=== PATIENT | male | born 1975 | race Caucasian/White ===

== ENCOUNTER 2024-12-01 06:14 | Day surgery (SDC) | payer SELFPAY ==
[2024-12-01] VITALS (8 sets, daily range): BP systolic 94–122; BP diastolic 61–90; PULSE 63–80; RESP 16; TEMP 36.1–36.4; O2SAT 92–99; BMI 33.3
--- OUTSIDE RECORDS SUMMARY | 2024-12-01 06:19 | XMS RPT_ITS | CCD ---
Author Organization [facility] Care Team Providers Care Supervisor [employer] Name Role Phone Rogelio Chin PA-C Primary Care Provider [phone] Rogelio Chin PA-C Referring Provider Britton NELSON, Dr. Contreras Attending Provider Rogelio Chin Referring Unavailable Rogelio Chin Primary Care Unavailable Ben Jarquin Attending Unavailable Rogelio Chin Primary Care Unavailable Ben Jarquin Attending Unavailable Problems Problem Classification Problem Date Documented Da te Episodic/Chronic Abdominal pain (3 sources) Left upper quadrant pain; Translations: [Left upper quadrant pain] Onset: 11-03-2024 11-03-2024 Episodic Results Test Name Value Interpretation Reference Range Facil it Surgery Visit Reporton 11-03 Surgery Visit Report [facility] [address] [place] [address] [address] [place] [address] OFFICE VISIT Date of Service: 11/03/24 MR#: [id number] Acct: [id number] Name: MARJAN ROBINS Rep #: [id number] : 1975 Provider: Dr. Ben gómez MD Age/Sex: 49/M Location: [facility] Status: Signed Intake Vital Signs 11/03/24 13:54 Height 5 ft 4 in Weight: 198 lb BMI 34.0 BP 116/78 Blood Pressure Location Rt brachial Position Sitting Respiration 16 Intake Visit Reasons: HIATAL HERNIA Chief Complaint: luq abd pain Aquatic Performer Required: No Is patient in pain?: No Allergies No Known Allergies Allergy (Unverified 11/03/24 13:54) Medications ???Medication ???Instructions ???Recorded ???Confirmed ???Type NK 11/03/24 11/03/24 History Have you fallen in the past year?: No PFSH Medical History (Updated 11/03/24 @ 14:[address] Ben Jarquin MD) LUQ abdominal pain Family History (Updated 11/03/24 @ 13:54 by Julissa Sierra) Mother Hypertension Social History (Updated 11/03/24 @ 13:54 by Julissa Sierra) Smoking Status: Former smoker alcohol intake: never HPI HPI HPI: Patient is a 49-year-old male here with left upper quadrant pain. He was sent here for evaluation for hiatal hernia. He reports that it hurts whenever he eats. He has tried a PPI and Carafate to no avail after a few weeks of treatment. The pain does not radiate. He says it hurts whenever he eats anything. He said even drinking water can make it hurt ROS General General: No weight change, appetite, fatigue, colon cancer, breast cancer or weakness HEENT HEENT: No difficulty swallowing, eye injury, eye surgery, swollen glands or hoarseness Endo Endocrine: No thyroid disease, diabetes mellitus, thyroid cancer, Hair loss, heat intolerance or cold intolerance Skin Skin: No rash or changing moles Breast Breast: No left breast lump, right breast lump, nipple discharge, breast pain, abnormal mammogram, abnormal US or breast enlargement Musc Musculoskeletal: No back problems, arthritis, rheumatoid arthritis, gout or joint pain Cardio Cardiovascular: No murmur, pacemaker, heart disease, atrial fibrillation, high blood pressure, heart attack, heart stent, palpitations, shortness of breath with exertion or chest pain Psych Psychiatric: No depression, anxiety or hearing voices Resp Respiratory: No shortness of breath, No sleep apnea, No cough, No COPD, No asthma, No emphysema and No wheezing Gastro Gastrointestinal: No abdominal pain, No nausea or vomiting, No diarrhea, No constipation, No blood in stool, No acid reflux, No hemorrhoids, No ulcers, No gallbladder problem and No black,tarry stools Toi Hematologic: No blood thinners, No blood disorders, No bleeding, No anemia and No blood clots Neuro Neurologic: No system reviewed and no additional complaints, except as documented, No as per HPI, No abnormal gait, No abnormal hearing, No abnormal movements, No abnormal speech, No behavioral changes, No burning sensations, No confusion, No convulsions, No disequilibrium, No dizziness, No localized weakness, No frequent falls, No headache(s), No lack of coordination, No loss of vision, No memory loss, No numbness, No other visual disturbances, No radicular pain, No restless legs, No sensory deficit, No syncope, No tingling, No tremor(s), No weakness and No other Exam Const General: cooperative Orientation: alert and oriented x3 HENMT Head: normal to inspection Neck Neck: normal visual inspection and full ROM Chest Chest palpation inspection: normal inspection of the chest Resp Effort Inspection: normal respiratory effort Auscultation: clear to auscultation bilaterally Cardio Rate: regular rate Rhythm: regular rhythm GI Inspection: non-distended Palpation: soft and nontender Skin General: no rashes or lesions noted Neuro General: patient alert and patient oriented x3 Extrem General: full ROM Psych Appearance: grossly normal Mental Status: mental status grossly normal Assessment and Plan Assessment and Plan (1) LUQ abdominal pain: Status: Acute Plan: The patient is having left upper quadrant pain he reports that eating any type of food or drink makes it hurt worse. He says this has been going on for several years. He denies blood in the stool. He has tried a PPI and Carafate which did not help. I discussed performing EGD to evaluate the stomach and esophagus and if there is nothing on EGD to indicate hiatal hernia or ulceration then I will order a CT scan to evaluate. I explained endoscopy in detail to the patient. I explained the risks including but not limited to stroke or heart attack with anesthesia, perforation of the GI tract, bleeding, infection. I explained that any of these could necessitate furt (more content not included)... Normal [facility] AMYLASEon 04-10-2023 Amylase [Catalytic activity/Vol] 47 U/L Normal 21-101 [facility] Comment on above: Performed By: #### 6 613, 606 #### [facility] [address], [address] [place] [id number] Brush Hand: Mundo Wang MD CBC (INCLUDES DIFF/PLT)on Basophils (Bld) [#/Vol] 0.028 10*3/uL Normal 0-200 [facility] Comment on above: Performed By: #### 6 399, 606 #### [facility] [address], [address] [place] [address] Brush Hand: Mundo Wang MD Basophils/100 WBC (Bld) 0.5 % Normal [facility] Comment on above: Performed By: #### 6 399, 606 #### [facility] of [address], [address] [place] [address] Brush Hand: Mundo Wang MD Eosinophils (Bld) [#/Vol] 0.062 10*3/uL Normal 15-500 [facility] Comment on above: Performed By: #### 6 399, 606 #### [facility] of [place] [address] Brush Hand: Mundo Wang MD Eosinophils/100 WBC (Bld) 1.1 % Normal [facility] Comment on above: Performed By: #### 6 399, 606 #### [facility] of [place] [address] Brush Hand: Mundo Wang MD Erythrocyte distribution width (RBC) [Ratio] 13.1 % Normal 11.0-15.0 [facility] Comment on above: Performed By: #### 6 399, 606 #### [facility] of [place] [address] Brush Hand: Mundo Wang MD Hematocrit (Bld) [Volume fraction] 48.6 % Normal 38.5-50.0 [facility] Comment on above: Performed By: #### 6 399, 606 #### [facility] of [place] [address] Brush Hand: Mundo Wang MD Hemoglobin (Bld) [Mass/Vol] 16.6 g/dL Normal 13.2-17.1 [facility] Comment on above: Performed By: #### 6 399, 606 #### [facility] of [place] [address] Brush Hand: Mundo Wang MD Lymphocytes (Bld) [#/Vol] 1.501 10*3/uL Normal 850-3900 [facility] Comment on above: Performed By: #### 6 399, 606 #### [facility] [place] [address] Brush Hand: Mundo Wang MD Lymphocytes/100 WBC (Bld) 26.8 % Normal [facility] Comment on above: Performed By: #### 6 399, 606 #### [facility] [place] [address] Brush Hand: Mundo Wang MD MCH (RBC) [Entitic mass] 29.8 pg Normal 27.0-33.0 [facility] Comment on above: Performed By: #### 6 399, 606 #### [facility] [place] [address] Brush Hand: Mundo Wang MD MCHC (RBC) [Mass/Vol] 34.2 g/dL Normal 32.0-36.0 [facility] Comment on above: Performed By: #### 6 399, 606 #### [facility] [place] [address] Brush Hand: Mundo Wang MD MCV (RBC) [Entitic vol] 87.3 fL Normal 80.0-100.0 [facility] Comment on above: Performed By: #### 6 399, 606 #### [facility] [place] [address] Brush Hand: Mundo Wang MD Monocytes (Bld) [#/Vol] 0.566 10*3/uL Normal 200-950 [facility] Comment on above: Performed By: #### 6 399, 606 #### [facility] [place] [address] Brush Hand: Mundo Wang MD Monocytes/100 WBC (Bld) 10.1 % Normal [facility] Comment on above: Performed By: #### 6 399, 606 #### [facility] of [address], [address] [place] [address] Brush Hand: Mundo Wang MD Neutrophils (Bld) [#/Vol] 3.444 10*3/uL Normal 3548-2404 [facility] Comment on above: Performed By: #### 6 399, 606 #### [facility] of [address], [address] [place] [address] Brush Hand: Mundo Wang MD Neutrophils/100 WBC (Bld) 61.5 % Normal [facility] Comment on above: Performed By: #### 6 399, 606 #### [facility] of [address], [address] [place] [address] Brush Hand: Mundo Wang MD Platelet mean volume (Bld) [Entitic vol] 10.9 fL Normal 7.5-12.5 [facility] Comment on above: Performed By: #### 6 399, 606 #### [facility] of [address], [address] [place] [address] Brush Hand: Mundo Wang MD Platelets (Bld) [#/Vol] 264 10*3/uL Normal 140-400 [facility] Comment on above: Performed By: #### 6 399, 606 #### [facility] of [address], [address] [place] [address] Brush Hand: Mundo Wang MD RBC (Bld) [#/Vol] 5.57 10*6/uL Normal 4.20-5.80 [facility] Comment on above: Performed By: #### 6 399, 606 #### [facility] of [address], [address] [place] [address] Brush Hand: Mundo Wang MD WBC (Bld) [#/Vol] 5.6 10*3/uL Normal 3.8-10.8 [facility] Comment on above: Performed By: #### 6 399, 606 #### [facility] of [address], [address] [place] [address] Brush Hand: Mundo Wang MD LIPASEon 04-10-2023 Lipase [Catalytic activity/Vol] 32 U/L Normal 7-60 [facility] Comment on above: Performed By: #### 6 451, 943 #### [facility] [address] [place] [address], [address] [place] [address] Brush Hand: Mundo Wang MD Vital Signs Date Time Vital Sign Value Performing Clinician Lucero castro 11-03-2024 13:54-0400 Body height 162.56 cm Rogelio Chin PA-C Work Phone: [facility] 11-03-2024 13:54-0400 Body mass index (BMI) [Ratio] 34 kg/m2 Rogelio Chin PA-C Work Phone: [facility] 11-03-2024 13:54-0400 Body weight 89.81 kg Rogelio Chin PA-C Work Phone: [facility] 11-03-2024 13:54-0400 Diastolic blood pressure 78 mm[Hg] Rogelio Chin PA-C Work Phone: [facility] 11-03-2024 13:54-0400 Respiratory rate 16 /min Rogelio Chin PA-C Work Phone: [facility] 11-03-2024 13:54-0400 Systolic blood pressure 116 mm[Hg] Rogelio Chin PA-C Work Phone: [facility] Encounters Encounter Date Encounter Type Care Provider Facility Start: 12-01-2024 ambulatory Rogelio D Chin Facilit y:[facility] Start: 11-03-2024 End: 11-03-[address] Ben Jarquin MD -[facility] Work Phone: Start: 11-03-2024 End: 11-03-2024 ambulatory Rogelio D Chin PA-C Work Phone: [facility] Work Phone: Plan of Treatment Date Care Activity Detail Author [facility] Payers Date Payer Category Payer Self-pay 2024 Unknown 0 Unknown [id number] Unknown [id number] Social History Date Type Detail Facility [facility]: [facility]03[facility] Start: 1975 Sex Assigned At Male [facility] Progress note 11-03-2024 Note Date & Type Note Facility 11-03-2024 Progress note [facility] Progress note 11-03-2024 Note Date & Type Note Facility 11-03-2024 Progress note Note Date/Time November 03, 2024 2:02pm [facility] [address] [place] [address] OFFICE VISIT Date of Service: 11/03/24 MR#: [id number] Acct: [id number] Name: MARJAN ROBINS Rep #: [id number] : 1975 Provider: Dr. Adarsh Jarquin MD Age/Sex: 49/M Location: [facility] Status: Signed Intake Vital Signs 11/03/24 13:54 Height 5 ft 4 in Weight: 198 lb BMI 34.0 BP 116/78 Blood Pressure Location Rt brachial Position Sitting Respiration 16 Intake Visit Reasons: HIATAL HERNIA Chief Complaint: luq abd pain Aquatic Performer Required: No Is patient in pain?: No Allergies No Known Allergies Allergy (Unverified 11/03/24 13:54) Medications ?Medication ?Instructions ?Recorded ?Confirmed ?Type NK 11/03/24 11/03/24 History Have you fallen in the past year?: No PFSH Medical History (Updated 11/03/24 @ 14:[address] Ben Jarquin MD) LUQ abdominal pain Family History (Updated 11/03/24 @ 13:54 by Julissa Sierra) Mother Hypertension Social History (Updated 11/03/24 @ 13:54 by Julissa Sierra) Smoking Status: Former smoker alcohol intake: never HPI HPI HPI: Patient is a 49-year-old male here with left upper quadrant pain. He was sent here for evaluation for hiatal hernia. He reports that it hurts whenever he eats. He has tried a PPI and Carafate to no avail after a few weeks of treatment. The pain does not radiate. He says it hurts whenever he eats anything. He said even drinking water can make it hurt ROS General General: No weight change, appetite, fatigue, colon cancer, breast cancer or weakness HEENT HEENT: No difficulty swallowing, eye injury, eye surgery, swollen glands or hoarseness Endo Endocrine: No thyroid disease, diabetes mellitus, thyroid cancer, Hair loss, heat intolerance or cold intolerance Skin Skin: No rash or changing moles Breast Breast: No left breast lump, right breast lump, nipple discharge, breast pain, abnormal mammogram, abnormal US or breast enlargement Musc Musculoskeletal: No back problems, arthritis, rheumatoid arthritis, gout or joint pain Cardio Cardiovascular: No murmur, pacemaker, heart disease, atrial fibrillation, high blood pressure, heart attack, heart stent, palpitations, shortness of breath with exertion or chest pain Psych Psychiatric: No depression, anxiety or hearing voices Resp Respiratory: No shortness of breath, No sleep apnea, No cough, No COPD, No asthma, No emphysema and No wheezing Gastro Gastrointestinal: No abdominal pain, No nausea or vomiting, No diarrhea, No constipation, No blood in stool, No acid reflux, No hemorrhoids, No ulcers, No gallbladder problem and No black,tarry stools Toi Hematologic: No blood thinners, No blood disorders, No bleeding, No anemia and No blood clots Neuro Neurologic: No system reviewed and no additional complaints, except as documented, No as per HPI, No abnormal gait, No abnormal hearing, No abnormal movements, No abnormal speech, No behavioral changes, No burning sensations, No confusion, No convulsions, No disequilibrium, No dizziness, No localized weakness, No frequent falls, No headache(s), No lack of coordination, No loss ofvision, No memory loss, No numbness, No other visual disturbances, No radicular pain, No restless legs, No sensory deficit, No syncope, No tingling, No tremor(s), No weakness and No other Exam Const General: cooperative Orientation: alert and oriented x3 HENMT Head: normal to inspection Neck Neck: normal visual inspection and full ROM Chest Chest palpation & inspection: normal inspection of the chest Resp Effort & Inspection: normal respiratory effort Auscultation: clear to auscultation bilaterally Cardio Rate: regular rate Rhythm: regular rhythm GI Inspection: non-distended Palpation: soft and nontender Skin General: no rashes or lesions noted Neuro General: patient alert and patient oriented x3 Extrem General: full ROM Psych Appearance: grossly normal Mental Status: mental status grossly normal Assessment and Plan Assessment and Plan (1) LUQ abdominal pain: Status: Acute Plan: The patient is having left upper quadrant pain he reports that eating any type of food or drink makes it hurt worse. He says this has been going on for several years. He denies blood in the stool. He has tried a PPI and Carafate which did not help. I discussed performing EGD to evaluate the stomach and esophagus and if there is nothing on EGD to indicate hiatal hernia or ulcerationthen I will order a CT scan to evaluate. I explained endoscopy in detail to the patient. I explained the risks includingbut not limited to stroke or heart attack with anesthesia, perforation of the GItract, bleeding, infection. I explained that any of these could necessitate further emergency surgery. The patient understands and all questions were answered sufficiently. The patient wishes to proceed with procedure. Ben Jarquin MD Pager: [facility] [address] [place] [address], [address] [place] [address] Office: Orders: Orders EGD Today Coding Level of Care Code Off vis,new,level 3 Diagnoses LUQ abdominal pain R10.12 Clinical Quality Measures Falls Risk Screening/Assistive Devices Have you fallen in the past year?: No 11/03/24 1402 <Electronically signed by Ben montano MD> Date _ Ben Jarquin MD Cosigner Signature: Date (if applicable) CC: ~ [facility] Work Phone: Evaluation note Note Date & Type Note Facility Evaluation note Diagnosis Onset Date Resolution LUQ abdominal pain acute October 182024 1:35pm [facility] Work Phone: Reason for referral (narrative) Note Date & Type Note Facility Reason for referral (narrative) No reason for referral information available [facility] Work Phone: Summary Purpose Family History No Family History Records Found Relationship Condition Age at Onset Recorded Date/T leslee mother Hypertension Unknown Advance Directives No Advanced Directives Records FoundNo Advanced Directives Records Found Chief Complaint and Reason for Visit Chief Complaint Admit Date HIATAL HERNIA November 03, 2024 1:35 pm Reason for Visit Admit Date LUQ abdominal pain November 03, 2024 1:35 pm Additional Source Comments (unrecognized sect ion and content) No Status Records FoundNo Status Records Found INFORMATION SOURCE (unrecogn ized section and content) DATE CREATED AUTHOR 04/12/2023 [facility] DATE CREATED AUTHOR AUTHOR'S ORGANIZ ATION 11/29/2024 [facility] Care Teams (unrecognized sec tion and content) Team Status: Active Member Role Status Dates Rogelio Chin PA-C Primary Care Provider Active Team Status: Inactive Member Role Status Dates Rogelio Chin PA-C Primary Care Provider Active Start: November 03, 2024 End: November 03, 2024 Rogelio Chin PA-C Referring Provider Active Start: November 03, 2024 End: November 03, 2024 Dr. Ben Jarquin MD Attending Provider Active Start: November 03, 2024 End: November 03, 2024 Goals (unrecognized section and content) Goals may be documented in a n alternate section FOR RECORDS PERTAINING TO PATIENTS WHO ARE OR HAVE BEEN ENROLLED IN A CHEMICAL DEPENDENCY/SUBSTANCEABUSE PROGRAM, SOME INFORMATION MAY BE OMITTED. This clinical summary was aggregated from multiple sources. Caution should be exercised in using it in the provision of clinical care. This summary normalizes information from multiple sources, and as a consequence, information in this document may materially change the coding, format and clinical context of patient data. In addition, data may be omitted in some cases. CLINICAL DECISIONS SHOULD BE BASED ON THE PRIMARY CLINICAL RECORDS. [facility] provides no warranty or guarantee of the accuracy or completeness of information in this document.
--- OUTSIDE RECORDS SUMMARY | 2024-12-01 06:19 | XMS RPT_ITS | CCD ---
Author Organization [facility] Care Team Providers Care Museum Service Scheduler Name Role Phone Rogelio Chin PA-C Primary Care Provider [phone] Rogelio Chin PA-C Referring Provider [phone] Britton NELSON, Dr. Contreras Attending Provider Rogelio [...] Surgery Visit Reporton 11-[address] [facility] [address] [place] [address] [address] [place] [address] OFFICE VISIT Date of Service: 11/03/24 MR#: [id number] Acct: [id number] Name: MARJAN ROBINS Rep #: [id number] : 1975 Provider: Dr. Ben gómez MD Age/Sex: 49/M Location: [facility] Status: Signed Intake Vital Signs 11/03/24 13:54 Height 5 ft 4 in Weight: 198 lb BMI 34.0 BP 116/78 Blood Pressure Location Rt brachial Position Sitting Respiration 16 Intake Visit Reasons: HIATAL HERNIA Chief Complaint: luq abd pain Non Licensed Nuclear Equipment Operator Required: No Is patient in pain?: No [...] necessitate furt (more content not included)... Normal [facility] AMYLASEon 04-10-2023 Amylase [Catalytic activity/Vol] 47 U/L Normal 21-101 [facility] Comment on above: Performed By: #### 6 579, 606 #### [facility] [address], [address] [place] [phone] Chiropractic Physician: Mundo Wang MD CBC (INCLUDES DIFF/PLT)on Basophils (Bld) [#/Vol] 0.028 10*3/uL Normal 0-200 [facility] Comment on above: Performed By: #### 6 399, 606 #### [facility] [address], [address] [place] [address] Chiropractic Physician: Mundo Wang MD Basophils/100 WBC (Bld) 0.5 % Normal [facility] Comment on above: Performed By: #### 6 399, 606 #### [facility] of [address], [address] [place] [address] Chiropractic Physician: Mundo Wang MD Eosinophils (Bld) [#/Vol] 0.062 10*3/uL Normal 15-500 [facility] Comment on above: Performed By: #### 6 399, 606 #### [facility] of [place] [address] Chiropractic Physician: Mundo Wang MD Eosinophils/100 WBC (Bld) 1.1 % Normal [facility] Comment on above: Performed By: #### 6 399, 606 #### [facility] of [place] [address] Chiropractic Physician: Mundo Wang MD Erythrocyte distribution width (RBC) [Ratio] 13.1 % Normal 11.0-15.0 [facility] Comment on above: Performed By: #### 6 399, 606 #### [facility] of [place] [address] Chiropractic Physician: Mundo Wang MD Hematocrit (Bld) [Volume fraction] 48.6 % Normal 38.5-50.0 [facility] Comment on above: Performed By: #### 6 399, 606 #### [facility] of [place] [address] Chiropractic Physician: Mundo Wang MD Hemoglobin (Bld) [Mass/Vol] 16.6 g/dL Normal 13.2-17.1 [facility] Comment on above: Performed By: #### 6 399, 606 #### [facility] of [place] [address] Chiropractic Physician: Mundo Wang MD Lymphocytes (Bld) [#/Vol] 1.501 10*3/uL Normal 850-3900 [facility] Comment on above: Performed By: #### 6 399, 606 #### [facility] [place] [address] Chiropractic Physician: Mundo Wang MD Lymphocytes/100 WBC (Bld) 26.8 % Normal [facility] Comment on above: Performed By: #### 6 399, 606 #### [facility] [place] [address] Chiropractic Physician: Mundo Wang MD MCH (RBC) [Entitic mass] 29.8 pg Normal 27.0-33.0 [facility] Comment on above: Performed By: #### 6 399, 606 #### [facility] [place] [address] Chiropractic Physician: Mundo Wang MD MCHC (RBC) [Mass/Vol] 34.2 g/dL Normal 32.0-36.0 [facility] Comment on above: Performed By: #### 6 399, 606 #### [facility] [place] [address] Chiropractic Physician: Mundo Wang MD MCV (RBC) [Entitic vol] 87.3 fL Normal 80.0-100.0 [facility] Comment on above: Performed By: #### 6 399, 606 #### [facility] [place] [address] Chiropractic Physician: Mundo Wang MD Monocytes (Bld) [#/Vol] 0.566 10*3/uL Normal 200-950 [facility] Comment on above: Performed By: #### 6 399, 606 #### [facility] [place] [address] Chiropractic Physician: Mundo Wang MD Monocytes/100 WBC (Bld) 10.1 % Normal [facility] Comment on above: Performed By: #### 6 399, 606 #### [facility] of [address], [address] [place] [address] Chiropractic Physician: Mundo Wang MD Neutrophils (Bld) [#/Vol] 3.444 10*3/uL Normal 6682-9355 [facility] Comment on above: Performed By: #### 6 399, 606 #### [facility] of [address], [address] [place] [address] Chiropractic Physician: Mundo Wang MD Neutrophils/100 WBC (Bld) 61.5 % Normal [facility] Comment on above: Performed By: #### 6 399, 606 #### [facility] [address], [address] [place] [address] Chiropractic Physician: Mundo Wang MD Platelet mean volume (Bld) [Entitic vol] 10.9 fL Normal 7.5-12.5 [facility] Comment on above: Performed By: #### 6 399, 606 #### [facility] [address], [address] [place] [address] Chiropractic Physician: Mundo Wang MD Platelets (Bld) [#/Vol] 264 10*3/uL Normal 140-400 [facility] Comment on above: Performed By: #### 6 399, 606 #### [facility] [address], [address] [place] [address] Chiropractic Physician: Mundo Wang MD RBC (Bld) [#/Vol] 5.57 10*6/uL Normal 4.20-5.80 [facility] Comment on above: Performed By: #### 6 399, 606 #### [facility] [address], [address] [place] [address] Chiropractic Physician: Mundo Wang MD WBC (Bld) [#/Vol] 5.6 10*3/uL Normal 3.8-10.8 [facility] Comment on above: Performed By: #### 6 399, 606 #### [facility] of [address], [address] [place] [address] Chiropractic Physician: Mundo Wang MD LIPASEon 04-10-2023 Lipase [Catalytic activity/Vol] 32 U/L Normal 7-60 [facility] Comment on above: Performed By: #### 6 399, 393 #### [facility] [address] [place] [address], [address] [place] [address] Chiropractic Physician: Mundo Wang MD Vital Signs Date Time Vital Sign Value Performing Clinician Lucero castro 11-03-2024 13:54-0400 Body height 162.56 cm Rogelio Chin PA-C Work Phone: [facility] 11-03-2024 13:54-0400 Body mass index (BMI) [Ratio] 34 kg/m2 Rogelio Chin PA-C Work Phone: [facility] 11-03-2024 13:54-0400 Body weight 89.81 kg Rogelio Chin PA-C Work Phone: [facility] 11-03-2024 13:54-0400 Diastolic blood pressure 78 mm[Hg] Rogelio Chin PA-C Work Phone: [facility] 11-03-2024 13:54-0400 Respiratory rate 16 /min Rogelio Chin PA-C Work Phone: [facility] 11-03-2024 13:54-0400 Systolic blood pressure 116 mm[Hg] Rogelio Chin PA-C Work Phone: [facility] Encounters Encounter Date Encounter Type Care Provider Facility Start: 12-01-2024 ambulatory Rogelio D Chin Facilit y:[facility] Start: 11-03-2024 End: 11-03-[address] Ben Jarquin MD -[facility] Work Phone: Start: 11-03-2024 End: 11-03-2024 ambulatory Rogelio D Chin PA-C Work Phone: [facility] Work Phone: Plan of Treatment Date Care Activity Detail Author [facility] Payers Date Payer Category Payer Self-pay 2024 Unknown 0 Unknown [id number] Unknown [id number] Social History Date Type Detail Facility Start: 11-03-[address] [facility] Start: 1975 Sex Assigned At Male [facility] Progress note 11-03-2024 Note Date & Type Note Facility 11-03-2024 Progress note [facility] Progress note 11-03-2024 Note Date & Type Note Facility 11-03-2024 Progress note Note Date/Time November 03, 2024 2:02pm [facility] [address] [place] [address] OFFICE VISIT Date of Service: 11/03/24 MR#: [id number] Acct: [id number] Name: MARJAN ROBINS Rep #: [id number] : 1975 Provider: Dr. Adarsh Jarquin MD Age/Sex: 49/M Location: [facility] Status: Signed Intake Vital Signs 11/03/24 13:54 Height 5 ft 4 in Weight: 198 lb BMI 34.0 BP 116/78 Blood Pressure Location Rt brachial Position Sitting Respiration 16 Intake Visit Reasons: HIATAL HERNIA Chief Complaint: luq abd pain Non Licensed Nuclear Equipment Operator Required: No Is patient in pain?: No [...] proceed with procedure. Ben Jarquin MD Pager: [facility] [address] [place] [address], [address] [place] [address] Office: Orders: Orders EGD Today Coding Level of Care Code Off vis,new,level 3 Diagnoses LUQ abdominal pain R10.12 Clinical Quality Measures Falls Risk Screening/Assistive Devices Have you fallen in the past year?: No 11/03/24 1402 <Electronically signed by Ben montano MD> Date _ Ben Jarquin MD Cosigner Signature: Date (if applicable) CC: ~ [facility] Work Phone: Evaluation note Note Date & Type Note Facility Evaluation note Diagnosis Onset Date Resolution LUQ abdominal pain acute October 182024 1:35pm [facility] Work Phone: Reason for referral (narrative) Note Date & Type Note Facility Reason for referral (narrative) No reason for referral information available [facility] Work Phone: Summary Purpose Family History [...] DATE CREATED AUTHOR AUTHOR'S ORGANIZ ATION 11/29/2024 [facility] Care Teams (unrecognized sec tion and content) [...] BE BASED ON THE PRIMARY CLINICAL RECORDS. [facility] [employer] [facility]. provides no warranty or guarantee of the accuracy or completeness of information in this document.
--- NOTE | 2024-12-01 06:47 | PCM.HP.BLA ---
History and Physical Date of Admission: 12/01/24 Intake Vital Signs 11/03/2512:54 Height 5 ft 4 in Weight: 198 lb BMI 34.0 BP 116/78 Blood Pressure Location Rt brachial Position Sitting Respiration 16 Intake Visit Reasons: HIATAL HERNIA Chief Complaint: luq abd pain Engineering Production Liaison Required: No Is patient in pain?: No Allergies No Known Allergies Allergy (Unverified 11/03/24 13:54) Medications ?Medication ?Instructions ?Recorded ?Confirmed ?Type NK 11/03/24 11/03/24 History Have you fallen in the past year?: No PFSH Medical History (Updated 11/03/24 @ 14:[address] Ben Jarquin MD) LUQ abdominal pain Family History (Updated 11/03/24 @ 13:54 by Julissa Sierra) Mother Hypertension Social History (Updated 11/03/24 @ 13:54 by Julissa Sierra) Smoking Status: Former smoker alcohol intake: never HPI HPI HPI: Patient is a 49-year-old male here with left upper quadrant pain. He was sent here for evaluation for hiatal hernia. He reports that it hurts whenever he eats. He has tried a PPI and Carafate to no avail after a few weeks of treatment. The pain does not radiate. He says it hurts whenever he eats anything. He said even drinking water can make it hurt ROS General General: No weight change, appetite, fatigue, colon cancer, breast cancer or weakness HEENT HEENT: No difficulty swallowing, eye injury, eye surgery, swollen glands or hoarseness Endo Endocrine: No thyroid disease, diabetes mellitus, thyroid cancer, Hair loss, heat intolerance or cold intolerance Skin Skin: No rash or changing moles Breast Breast: No left breast lump, right breast lump, nipple discharge, breast pain, abnormal mammogram, abnormal US or breast enlargement Musc Musculoskeletal: No back problems, arthritis, rheumatoid arthritis, gout or joint pain Cardio Cardiovascular: No murmur, pacemaker, heart disease, atrial fibrillation, high blood pressure, heart attack, heart stent, palpitations, shortness of breath with exertion or chest pain Psych Psychiatric: No depression, anxiety or hearing voices Resp Respiratory: No shortness of breath, No sleep apnea, No cough, No COPD, No asthma, No emphysema and No wheezing Gastro Gastrointestinal: No abdominal pain, No nausea or vomiting, No diarrhea, No constipation, No blood in stool, No acid reflux, No hemorrhoids, No ulcers, No gallbladder problem and No black,tarry stools Toi Hematologic: No blood thinners, No blood disorders, No bleeding, No anemia and No blood clots Neuro Neurologic: No system reviewed and no additional complaints, except as documented, No as per HPI, No abnormal gait, No abnormal hearing, No abnormal movements, No abnormal speech, No behavioral changes, No burning sensations, No confusion, No convulsions, No disequilibrium, No dizziness, No localized weakness, No frequent falls, No headache(s), No lack of coordination, No loss of vision, No memory loss, No numbness, No other visual disturbances, No radicular pain, No restless legs, No sensory deficit, No syncope, No tingling, No tremor(s), No weakness and No other Exam Const General: cooperative Orientation: alert and oriented x3 HENMT Head: normal to inspection Neck Neck: normal visual inspection and full ROM Chest Chest palpation & inspection: normal inspection of the chest Resp Effort & Inspection: normal respiratory effort Auscultation: clear to auscultation bilaterally Cardio Rate: regular rate Rhythm: regular rhythm GI Inspection: non-distended Palpation: soft and nontender Skin General: no rashes or lesions noted Neuro General: patient alert and patient oriented x3 Extrem General: full ROM Psych Appearance: grossly normal Mental Status: mental status grossly normal Assessment and Plan Assessment and Plan (1) LUQ abdominal pain: Status: Acute Plan: The patient is having left upper quadrant pain he reports that eating any type of food or drink makes it hurt worse. He says this has been going on for several years. He denies blood in the stool. He has tried a PPI and Carafate which did not help. I discussed performing EGD to evaluate the stomach and esophagus and if there is nothing on EGD to indicate hiatal hernia or ulceration then I will order a CT scan to evaluate. I explained endoscopy in detail to the patient. I explained the risks including but not limited to stroke or heart attack with anesthesia, perforation of the GI tract, bleeding, infection. I explained that any of these could necessitate further emergency surgery. The patient understands and all questions were answered sufficiently. The patient wishes to proceed with procedure. Ben Jarquin MD Pager: [facility] [address] [place] [address], [address] [place] [address] Office: I have examined the patient and the H&P has been reviewed. There are no clinical changes since date of exam.
[2024-12-01] MEDS: Lactated Ringers 1,000 ML 15 ML IV (06:51)
--- NOTE | 2024-12-01 07:30 | EGD_PTH ---
PATIENT: MARJAN ROBINS LOC: EN U#:[id number] AGE/SX: 49/M ROOM: RE12/01/[address]: Dr. Ben Jarquin MD : 1975 BED: DIS: 12/01/2024 SPEC #: [id number] RECD: 12/01/24 09:39 STATUS: NADIA MELVI #: [id number] MARTÍN: 12/01/24 07:[address]: Ben Jarquin DEPT: SURGICAL PATHOLOGY RECD BY: Samra Gunderson ENTERED: 12/01/24 10:50 SP TYPE: EGD BIOPSY OT DR: Rogelio Chin PA-C Tissues: Gastric mucous membrane Procedures: Immunohistochemical Stains Surgery Specimen Level IV HEADER OPERATION: EGD with biopsy PRE-OP DIAGNOSIS: Left upper quadrant abdominal pain TISSUE SUBMITTED: A- Antrum biopsy MICROSCOPIC DIAGNOSIS A. Stomach, antrum, biopsy: * Antral mucosa with mild chronic focal active inflammation with intestinal metaplasia and reactive changes * The immunostain for Helicobacter pylori organisms is negative MICROSCOPIC DESCRIPTION Slides are reviewed. All matched controls reacted appropriately. These tests were developed and their performance characteristics determined by [facility]. They may not have been cleared or approved by the U.S. Food and Drug Administration. The FDA has determined that such clearance or approval is not necessary. The above immunohistochemical/dualISH markers are viewed by the Pathologist. GROSS DESCRIPTION A. Received in fixative is one container labeled with the patient's name and designated Antrum biopsy. The specimen consists of one irregular fragment of light reyes soft tissue that measures 0.5 cm. The specimen is totally submitted in one cassette. NE 12/01/2024 CPT:32400,00971
--- NOTE | 2024-12-01 07:30 | EGD_PTH ---
PATIENT: MARJAN ROBINS LOC: EN U#:[id number] AGE/SX: 49/M ROOM: RE12/01/[address]: Dr. Ben Jarquin MD : 1975 BED: DIS: 12/01/2024 SPEC #: [id number] RECD: 12/01/24 09:39 STATUS: NADIA MELVI #: [id number] MARTÍN: 12/01/24 07:[address]: eBn Jarquin DEPT: SURGICAL PATHOLOGY RECD BY: Samra Gunderson ENTERED: 12/01/24 10:50 SP TYPE: EGD BIOPSY OT DR: Rogelio Chin PA-C Tissues: Gastric mucous membrane Procedures: Immunohistochemical Stains Surgery Specimen Level IV HEADER OPERATION: EGD with biopsy PRE-OP DIAGNOSIS: Left upper quadrant abdominal pain TISSUE SUBMITTED: A- Antrum biopsy MICROSCOPIC DIAGNOSIS A. Stomach, antrum, biopsy: * Antral mucosa with mild chronic focal active inflammation with intestinal metaplasia and reactive changes * The immunostain for Helicobacter pylori organisms is negative MICROSCOPIC DESCRIPTION Slides are reviewed. All matched controls reacted appropriately. These tests were developed and their performance characteristics determined by [facility]. They may not have been cleared or approved by the U.S. Food and Drug Administration. The FDA has determined that such clearance or approval is not necessary. The above immunohistochemical/dualISH markers are viewed by the Pathologist. GROSS DESCRIPTION A. Received in fixative is one container labeled with the patient's name and designated Antrum biopsy. The specimen consists of one irregular fragment of light reyes soft tissue that measures 0.5 cm. The specimen is totally submitted in one cassette. OR 12/01/2024 CPT:69139,97169
--- NOTE | 2024-12-01 07:33 | PCM.PRE.AN2 ---
ASA Classification* ASA Classification ASA Classification: 2 Assessment & Plan Anesthesia* Anesthesia Assessment Anesthesia Assessment: Discussed sedation and/or anesthesia options, risks, benefits, and alternatives with patient/parents/legal guardian/POA. Questions invited. The patient/parents/legal guardian/POA seems to understand and agrees to proceed with anesthesia plan. Reviewed the physical assessment, medical history, allergy history and patient home medications list prior to surgery/procedure/anesthetic and documented any changes. Performed airway and anesthesia risk assessments. Anesthesia Type Anesthesia Type: MAC History Source History Obtained from:: Patient and Chart Anesthesia Focused Assessment* Temperature: 97.4 F Pulse Rate: 80 Blood Pressure: 122/90 Respiratory Rate: 16 Pulse Ox: 98 Oxygen Delivery Method: Room Air Airway Assessment Mouth opens: >3 cm Mallampati Score: IV Teeth Condition: Full (Patient is full upper and lower dentures. 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 When Was Last Pacemaker Check QUESTION #4 FULL TEXT: You/Your Family Experience fever (hyperthermia) with Anesthesia Last Oral Intake Last Oral intake: Last Oral Intake NPO since 22:00 12/01/24 06:45 Meds taken in AM with sips of water? Meds patient instructed to take am of surgery PONV PONV - conservation science teacher: PONV - conservation science teacher Female No 11/27/24 10:52 HX of Motion Sickness No 11/27/24 10:52 HX of N/V After Surgery No 11/27/24 10:52 Non-Smoker Yes 11/27/24 10:52 Duration of Surgery greater No 11/27/24 10:52 than 60 minutes Number of Risk Factors 1 11/27/24 10:52 PONV Score Low Risk 11/27/24 10:52 Height & Weight Height & Weight: Anesthesia: Height & Weight Height 5 ft 4 in 12/01/24 06:45 Weight: 88 kg 12/01/24 06:45 Body Mass Index (BMI) 33.3 12/01/24 06:45 Respiratory Assessment Respiratory Assessment - conservation science teacher: Respiratory Tract Infection Hx - conservation science teacher Hx Respiratory Tract Infection No 11/27/24 10:52 STOP Sleep Apnea STOP Sleep Apnea - conservation science teacher: STOP Sleep Apnea - conservation science teacher Hx Hypertension No 11/27/24 10:52 Hx Sleep Apnea No 11/27/24 10:52 CPAP BIPAP Do you snore loudly (louder Yes 11/27/24 10:52 than talking or can be heard Do you often feel tired/ No 11/27/24 10:52 fatigued/ sleepy during daytime? Has anyone observed you stop No 11/27/24 10:52 breathing during sleep? STOP Results Negative 11/27/24 10:52 QUESTION #5 FULL TEXT : Do you snore loudly (louder than talking or can be heard through closed doors)? Tobacco Use History Tobacco Use History - conservation science teacher: Tobacco Use History - conservation science teacher Tobacco Use Smoking Status Former smoker 11/27/24 10:52 Hx Tobacco Use No 11/27/24 10:52 Years Smoking Packs Smoked per Day Smoking Cessation Date was Yes - quit smoking within 15 11/27/24 10:52 within the last 15 years years Hx Smoking Cessation Date Hx Smoking Cessation No 11/27/24 10:52 Counseling Hematologic Medial History Hematologic Hx - conservation science teacher: Hematologic Medical Hx - human factors scientist Hx of Blood Transfusion No 11/27/24 10:52 Hx of Transfusion in last 3 No 11/27/24 10:52 Months Date of Last Transfusion (if within last 3 months) Ever experience any problems No 11/27/24 10:52 with transfusion(s)? 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 confused, unrespo /Reproduction History /Reproductive History - conservation science teacher: /Reproductive Hx- conservation science teacher Hx Now No 11/27/24 10:52 Gestational Age (in weeks): EDC: Hx Hx Para Hx Section SAB No 11/27/24 10:52 Active Medications Active Medications: Current Medications Generic Name Dose Route Start Last Admin Trade Name Freq PRN Reason Stop Dose Admin Lactated Ringer's 1,000 mls @ 15 mls/hr 12/01/24 06:45 12/01/24 06:51 IV 15 mls/hr .Q48H NATALIE Administration PFSH Medical History Wears dentures Wears glasses Redness of skin Back pain Migraine headache Former smoker LUQ abdominal pain Home Medications ?Medication ?Instructions ?Recorded ?Last Taken ?Type NK 11/03/24 Unknown History Allergy/AdvReac Type Severity Reaction Status Date / Time No Known Allergies Allergy Verified 12/01/24 06:43 Family History Mother Hypertension Surgical History No history of previous surgery Social History Smoking Status: Former smoker alcohol intake: never Review of Systems (Anesthesia) ROS Narrative System reviewed and no additional complaints, except as documented.
--- NOTE | 2024-12-01 07:33 | PCM.PRE.AN2 ---
ASA Classification* ASA Classification ASA Classification: 2 Assessment & Plan Anesthesia* Anesthesia Assessment Anesthesia Assessment: Discussed sedation and/or anesthesia options, risks, benefits, and alternatives with patient/parents/legal guardian/POA. Questions invited. The patient/parents/legal guardian/POA seems to understand and agrees to proceed with anesthesia plan. Reviewed the physical assessment, medical history, allergy history and patient home medications list prior to surgery/procedure/anesthetic and documented any changes. Performed airway and anesthesia risk assessments. Anesthesia Type Anesthesia Type: MAC History Source History Obtained from:: Patient and Chart Anesthesia Focused Assessment* Temperature: 97.4 F Pulse Rate: 80 Blood Pressure: 122/90 Respiratory Rate: 16 Pulse Ox: 98 Oxygen Delivery Method: Room Air Airway Assessment Mouth opens: >3 cm Mallampati Score: IV Teeth Condition: Full (Patient is full upper and lower dentures. They will come out.) Neck Range of motion (ROM): Full ROM Labs Anesthesia Preop lab: CBC CHEMISTRY COAG Pre-Assessment Diagnosis/Proposed Procedure Planned Operative Procedure(s): EGD Anesthesia History Anesthesia History - title officer: Anesthesia History - title officer Hx Hospitalization No 11/27/24 10:52 Any Problems With Anesthesia No 11/27/24 10:52 Cholinesterase deficiency No 11/27/24 10:52 You/Your Family Experience No 11/27/24 10:52 fever (hyperthermia) with Relationship Recent Exposure to Contagious No 12/01/24 06:45 Disease Does patient have nerve No 11/27/24 10:52 stimulator Patient instructed to have device shut off --Does patient have Pacemaker No 12/01/24 06:45 or ICD? When Was Last Pacemaker Check QUESTION #4 FULL TEXT: You/Your Family Experience fever (hyperthermia) with Anesthesia Last Oral Intake Last Oral intake: Last Oral Intake NPO since 22:00 12/01/24 06:45 Meds taken in AM with sips of water? Meds patient instructed to take am of surgery PONV PONV - title officer: PONV - title officer Female No 11/27/24 10:52 HX of Motion Sickness No 11/27/24 10:52 HX of N/V After Surgery No 11/27/24 10:52 Non-Smoker Yes 11/27/24 10:52 Duration of Surgery greater No 11/27/24 10:52 than 60 minutes Number of Risk Factors 1 11/27/24 10:52 PONV Score Low Risk 11/27/24 10:52 Height & Weight Height & Weight: Anesthesia: Height & Weight Height 5 ft 4 in 12/01/24 06:45 Weight: 88 kg 12/01/24 06:45 Body Mass Index (BMI) 33.3 12/01/24 06:45 Respiratory Assessment Respiratory Assessment - title officer: Respiratory Tract Infection Hx - title officer Hx Respiratory Tract Infection No 11/27/24 10:52 STOP Sleep Apnea STOP Sleep Apnea - title officer: STOP Sleep Apnea - title officer Hx Hypertension No 11/27/24 10:52 Hx Sleep Apnea No 11/27/24 10:52 CPAP BIPAP Do you snore loudly (louder Yes 11/27/24 10:52 than talking or can be heard Do you often feel tired/ No 11/27/24 10:52 fatigued/ sleepy during daytime? Has anyone observed you stop No 11/27/24 10:52 breathing during sleep? STOP Results Negative 11/27/24 10:52 QUESTION #5 FULL TEXT : Do you snore loudly (louder than talking or can be heard through closed doors)? 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 confused, unrespo /Reproduction History /Reproductive History - title officer: /Reproductive Hx- title officer Hx Now No 11/27/24 10:52 Gestational Age (in weeks): EDC: Hx Hx Para Hx Section SAB No 11/27/24 10:52 Active Medications Active Medications: Current Medications Generic Name Dose Route Start Last Admin Trade Name Freq PRN Reason Stop Dose Admin Lactated Ringer's 1,000 mls @ 15 mls/hr 12/01/24 06:45 12/01/24 06:51 IV 15 mls/hr .Q48H NATALIE Administration PFSH Medical History Wears dentures Wears glasses Redness of skin Back pain Migraine headache Former smoker LUQ abdominal pain Home Medications ?Medication ?Instructions ?Recorded ?Last Taken ?Type NK 11/03/24 Unknown History Allergy/AdvReac Type Severity Reaction Status Date / Time No Known Allergies Allergy Verified 12/01/24 06:43 Family History Mother Hypertension Surgical History No history of previous surgery Social History Smoking Status: Former smoker alcohol intake: never Review of Systems (Anesthesia) ROS Narrative System reviewed and no additional complaints, except as documented.
--- NOTE | 2024-12-01 08:03 | OP.EGD_ITS ---
Patient Name: Bartolome Hogan Procedure Date: 12/01/2024 7:47 AM Date of : 1975 Age: 49 Procedure: Upper GI endoscopy Indications: Abdominal pain in the left upper quadrant, Suspected gastro-esophageal reflux disease Providers: Ben Jarquin MD Referring MD: Rogelio Chin Pa-c Medicines: Propofol per Anesthesia Patient Profile: This is a 49 year old male. Refer to note in patient chart for documentation of history and physical. Complications: No immediate complications. Estimated blood loss: Minimal. Procedure: Pre-Anesthesia Assessment: - Prior to the procedure, a History and Physical was performed, and patient medications and allergies were reviewed. The patient's tolerance of previous anesthesia was also reviewed. The risks and benefits of the procedure and the sedation options and risks were discussed with the patient. All questions were answered, and informed consent was obtained. Prior Anticoagulants: The patient has taken no anticoagulant or antiplatelet agents. After reviewing the risks and benefits, the patient was deemed in satisfactory condition to undergo the procedure. After obtaining informed consent, the endoscope was passed under direct vision. Throughout the procedure, the patient's blood pressure, pulse, and oxygen saturations were monitored continuously. The gastroscope was introduced through the mouth, and advanced to the third part of duodenum. The upper GI endoscopy was accomplished without difficulty. The patient tolerated the procedure well. Scope In: 7:57:27 AM Scope Out: 8:00:49 AM Total Procedure Duration Time 0 hours 3 minutes 22 seconds Findings: The esophagus was normal. The stomach was normal. The examined duodenum was normal. Biopsies were taken with a cold forceps in the gastric antrum for Helicobacter pylori testing. Impression: - Normal esophagus. - Normal stomach. - Normal examined duodenum. - Biopsies were taken with a cold forceps for Helicobacter pylori testing. Recommendation: - Discharge patient to home. - Resume previous diet. - Continue present medications. - Await pathology results. Procedure Code(s): --- Professional --- 69700, Esophagogastroduodenoscopy, flexible, transoral; with biopsy, single or multiple Diagnosis Code(s): --- Professional --- R10.12, Left upper quadrant pain CPT copyright 2021 [employer]. All rights reserved. The codes documented in this report are preliminary and upon retread mold operator review may be revised to meet current compliance requirements. Ben Jarquin MD 12/01/2024 8:03:19 AM This report has been signed electronically. Number of Addenda: 0 Note Initiated On: 12/01/2024 7:47 AM
--- NOTE | 2024-12-01 08:03 | OP.EGD_ITS ---
Patient Name: Bartolome Hogan Procedure Date: 12/01/2024 7:47 AM Date of : 1975 Age: 49 Procedure: Upper GI endoscopy Indications: Abdominal pain in the left upper quadrant, Suspected gastro-esophageal reflux disease Providers: Ben Jarquin MD Referring MD: Rogelio Chin Pa-c Medicines: Propofol per Anesthesia Patient Profile: This is a 49 year old male. Refer to note in patient chart for documentation of history and physical. Complications: No immediate complications. Estimated blood loss: Minimal. Procedure: Pre-Anesthesia Assessment: - Prior to the procedure, a History and Physical was performed, and patient medications and allergies were reviewed. The patient's tolerance of previous anesthesia was also reviewed. The risks and benefits of the procedure and the sedation options and risks were discussed with the patient. All questions were answered, and informed consent was obtained. Prior Anticoagulants: The patient has taken no anticoagulant or antiplatelet agents. After reviewing the risks and benefits, the patient was deemed in satisfactory condition to undergo the procedure. After obtaining informed consent, the endoscope was passed under direct vision. Throughout the procedure, the patient's blood pressure, pulse, and oxygen saturations were monitored continuously. The gastroscope was introduced through the mouth, and advanced to the third part of duodenum. The upper GI endoscopy was accomplished without difficulty. The patient tolerated the procedure well. Scope In: 7:57:27 AM Scope Out: 8:00:49 AM Total Procedure Duration Time 0 hours 3 minutes 22 seconds Findings: The esophagus was normal. The stomach was normal. The examined duodenum was normal. Biopsies were taken with a cold forceps in the gastric antrum for Helicobacter pylori testing. Impression: - Normal esophagus. - Normal stomach. - Normal examined duodenum. - Biopsies were taken with a cold forceps for Helicobacter pylori testing. Recommendation: - Discharge patient to home. - Resume previous diet. - Continue present medications. - Await pathology results. Procedure Code(s): --- Professional --- 64992, Esophagogastroduodenoscopy, flexible, transoral; with biopsy, single or multiple Diagnosis Code(s): --- Professional --- R10.12, Left upper quadrant pain CPT copyright 2021 [employer]. All rights reserved. The codes documented in this report are preliminary and upon photo technologist review may be revised to meet current compliance requirements. Ben Jarquin MD 12/01/2024 8:03:19 AM This report has been signed electronically. Number of Addenda: 0 Note Initiated On: 12/01/2024 7:47 AM
--- NOTE | 2024-12-01 08:03 | OP.CCLET_ITS ---
12/01/2024 Rogelio Chin Pa-c Re : Upper GI endoscopy procedure for Bartolome Hogan Shaneller Elsy This procedure was performed on Sunday, December 01, 2024. My impressions and recommendations are as follows: Impressions : - Normal esophagus. - Normal stomach. - Normal examined duodenum. - Biopsies were taken with a cold forceps for Helicobacter pylori testing. Recommendations : - Discharge patient to home. - Resume previous diet. - Continue present medications. - Await pathology results. My findings are described in the full procedure note, which is enclosed. If I can be of further assistance, please feel free to contact me at Doctor phone number(s): , Work: . Sincerely, Ben Jarquin MD 12/01/2024 8:03:19 AM This report has been signed electronically.
--- NOTE | 2024-12-01 08:03 | OP.CCLET_ITS ---
12/01/2024 Rogelio Chin Pa-c Re : Upper GI endoscopy procedure for Bartolome Hogan Shaneller Elsy This procedure was performed on Sunday, December 01, 2024. My impressions and recommendations are as follows: Impressions : - Normal esophagus. - Normal stomach. - Normal examined duodenum. - Biopsies were taken with a cold forceps for Helicobacter pylori testing. Recommendations : - Discharge patient to home. - Resume previous diet. - Continue present medications. - Await pathology results. My findings are described in the full procedure note, which is enclosed. If I can be of further assistance, please feel free to contact me at Doctor phone number(s): , Work: . Sincerely, Ben Jarquin MD 12/01/2024 8:03:19 AM This report has been signed electronically.
--- NOTE | 2024-12-01 08:11 | PCM.POST.ANE ---
Anesthesia: Postop Eval I Current Vital Signs Temperature: 97 F Pulse Rate: 70 Blood Pressure: 94/66 Respiratory Rate: 16 Pulse Ox: 96 Oxygen Delivery Method: Room Air Assessment Airway patent: Yes Spontaneous unlabored respirations: Yes Mental status: Asleep nausea: No Vomiting: No Anesthesia Complication: No Fluid Hydration Crystalloid volume administer (ml): 300 Total IV fluid infused: 300 Progress Note Anesthesia document: Postop Eval 1 completed: Yes
--- NOTE | 2024-12-01 10:15 | PCM.POSTANE2 ---
Anesthesia Postop Eval I Sum Postop Eval Completion status Anesthesia document: Postop Eval 1 completed: Yes Anesthesia Postop Eval I Summary Anesthesia Postop Eval I Summary: Anesthesia Postop Eval I: Assessment Summary Airway patent Yes 12/01/24 08:11 [email or web address] Spontaneous unlabored Yes 12/01/24 08:11 [email or web address] respirations Mental status Asleep 12/01/24 08:11 [email or web address] nausea No 12/01/24 08:11 [email or web address] Vomiting No 12/01/24 08:11 [email or web address] Anesthesia Postop Eval I: Fluid Summary Crystalloid volume administer 300 12/01/24 08:11 [email or web address] (ml) Colloids volume administered ( ml) Blood Product volume administered (ml) Total IV fluid infused 300 12/01/24 08:11 [email or web address] Anesthesia Postop Eval I: Summary Notes Anesthesia Complication No 12/01/24 08:11 [email or web address] Anesthesia Complication Comment: Post-operative progress note Anesthesia: Postop Eval II Evaluation Mental status: Awake and Calm Pain Level: 0 nausea: No Vomiting: No Complications Anesthesia Complication: No
== END 2024-12-01 08:56 | disposition home or self-care (01) ==
LOC: EN 06:21 → AC 06:23
PROVIDERS: PCP Physician Assistant; Referring Provider Physician Assistant; Visit Provider Surgery
PROC: 0DJ08ZZ Inspection of Upper Intestinal Tract, Via Natural or Artificial Opening Endoscopic (ICD-10-PCS; CPT 43235; principal; 2024-12-01 07:25)
DX: R10.12 Left upper quadrant pain (principal); Z87.891 Personal history of nicotine dependence; K31.A0 Gastric intestinal metaplasia, unspecified; K29.50 Unspecified chronic gastritis without bleeding
CPT/HCPCS: 43239; 88305; 88342; J2405

== ENCOUNTER → 2024-12-02 | Outpatient (CLI) | payer SELFPAY ==
--- NOTE | 2024-12-02 18:30 | CT_ITS ---
PROCEDURE: ABDOMEN WITH IV CONTRAST 12/02/2024 REASON FOR EXAM: Left upper quadrant pain TECHNIQUE: ABDOMEN WITH IV CONTRAST. Multiplanar Sagittal and Coronal images were obtained. One or more dose reduction techniques were used (e.g., Automated exposure control, adjustment of the mA and/or kV according to patient size, use of iterative reconstruction technique. COMPARISON: None FINDINGS: Lung bases are clear. Liver, spleen, pancreas and adrenal glands are within normal limits. Gallbladder is partially contracted but otherwise intact. No significant biliary ductal dilation. Kidneys enhance symmetrically. No suspicious renal mass, calculi or hydronephrosis. No bowel obstruction, focal bowel wall thickening or significant perienteric inflammation. No free air or free fluid. No abdominal aortic aneurysm or suspicious adenopathy. Superficial soft tissues are within normal limits. No acute osseous abnormality. CT/Abdomen WITH IV Contrast IMPRESSION: No acute process. Reading Location: [facility]
--- NOTE | 2024-12-02 18:30 | CT_ITS ---
PROCEDURE: ABDOMEN WITH IV CONTRAST 12/02/2024 REASON FOR EXAM: Left upper quadrant pain TECHNIQUE: ABDOMEN WITH IV CONTRAST. Multiplanar Sagittal and Coronal images were obtained. One or more dose reduction techniques were used (e.g., Automated exposure control, adjustment of the mA and/or kV according to patient size, use of iterative reconstruction technique. COMPARISON: None FINDINGS: Lung bases are clear. Liver, spleen, pancreas and adrenal glands are within normal limits. Gallbladder is partially contracted but otherwise intact. No significant biliary ductal dilation. Kidneys enhance symmetrically. No suspicious renal mass, calculi or hydronephrosis. No bowel obstruction, focal bowel wall thickening or significant perienteric inflammation. No free air or free fluid. No abdominal aortic aneurysm or suspicious adenopathy. Superficial soft tissues are within normal limits. No acute osseous abnormality. CT/Abdomen WITH IV Contrast IMPRESSION: No acute process. Reading Location: [facility]
== END | disposition home or self-care (01) ==
LOC: CT 16:18
PROVIDERS: PCP Physician Assistant; Referring Provider Surgery; Visit Provider Surgery
DX: R10.12 Left upper quadrant pain (principal)
CPT/HCPCS: 74160; Q9967; A4216